=== PATIENT | female | born 1935 | race Caucasian/White ===

== ENCOUNTER 2024-09-14 12:15 | Emergency (ER) | payer OTHER, SELFPAY ==
[2024-09-14 12:22] VITALS: BP 144/96
[2024-09-14 12:45] LABS: % Basophils 0.7 % (0-2); % Eosinophils 3.1 % (0-6); % Immature Granulocytes 0.3 % (0-0.5); % Lymphocytes 20.6 % (20.5-51.1); % Monocytes 7.8 % (1.7-9.3); % Neutrophils 67.5 % (42.2-75.2); Absolute Basophils 0.1 10^3/uL (0-0.2); Absolute Eosinophils 0.2 10^3/uL (0-0.7); Absolute Lymphocytes 1.5 10^3/uL (1.2-3.4); Absolute Monocytes 0.6 10^3/uL (0.1-0.6); Absolute Neutrophils 4.8 10^3/uL (1.4-6.5); Hematocrit 38.8 % (37.0-47.0); Hemoglobin 12.8 g/dL (12.0-16.0); Mean Corpuscular Volume 90.9 fL (81.0-99.0); Mean Platelet Volume 8.9 fL (7.4-10.4); Nucleated Red Blood Cells % 0 %; Platelet Count 228 10^3/uL (130-400); Red Blood Cell Count 4.27 10^6/uL (4.20-5.40); Red Cell Dist. Width 14.8 % (11.5-14.5); White Blood Cell Count 7.1 10^3/uL (4.8-10.8)
[2024-09-14 12:59] LABS: ALT (SGPT) 16 U/L (0-35); AST (SGOT) 19 U/L (14-36); Albumin 4.2 g/dl (3.5-5.0); Alkaline Phosphatase 72 U/L (38-126); Blood Urea Nitrogen 16 mg/dl (7-17); Calcium 9.4 mg/dl (8.4-10.2); Carbon Dioxide 27 mmol/L (22-30); Chloride 103 mmol/L (98-107); Glucose 95 mg/dl (70-99); Potassium 4.5 mmol/L (3.5-5.1); Sodium 138 mmol/L (135-145); Total Protein 6.8 g/dl (6.3-8.2); eGFR > 60.00
--- NOTE | 2024-09-14 14:53 | ED.GENMED ---
History of Present Illness
<Liya Dent PA-C - Last Filed: 09/14/24 21:34>
General
Chief Complaint: Skin Problem
Source: patient
Exam Limitations: none
Time Seen by Provider: 09/14/24 14:09
Nursing documentation reviewed up to this point in time: agreed with
History of Present Illness
History of Present Illness:
89-year-old female with a past medical history of lipidemia presents emergency department today with concerns of a potential right foot infection. Patient states that she is first started noticing redness in her foot a few days ago. Patient
reports that with the wintertime season, she has had dry skin and has been itching her foot nonstop. Patient reports that she started to notice increasing itchiness and started develop redness. Patient denies any exposure to any allergens.
Patient states that it does not hurt. Patient denies any loss of sensation or paresthesias. Patient does note a blister to one of the toes. She denies any injury to the foot, she denies any falls. She has any fevers or chills, nausea or
vomiting. Patient saw her primary care provider this morning who saw her foot and said 'you have to go to the emergency department because your toes may fall off'.
Review of Systems
<Liya Dent PA-C - Last Filed: 09/14/24 21:34>
Review of Systems
All Other Systems: ROS reviewed and negative except as documented in HPI and ROS
Phy Exam
<Liya Dent PA-C - Last Filed: 09/14/24 21:34>
Physical Exam
Physical Exam:
General: Patient is well appearing and in no acute distress; non-toxic
Skin: Warm and dry, erythema noted to the top of the right foot with one blister noted
Head: Normocephalic, atraumatic
Eyes: Sclera non-icteric. EOMs intact.
Cardiac: Regular rate and rhythm, no murmurs
Peripheral Vascular: 2+ dorsalis pedis pulses bilaterally
Pulm: Normal respiratory effort
Musculoskeletal: Tenderness palpation of the right foot, full ROM of bilateral lower extremeties
Neuro: CN II-XII intact, no focal neurologic deficits.
Psychiatric: Appropriate mood and affect.
Course
<Liya Dent PA-C - Last Filed: 09/14/24 21:34>
Orders/Labs/Results
Orders:
Orders
09/14/24 12:29
Complete Blood Count/With Diff Urgent
Comprehensive Metabolic Panel Urgent
Abnormal Lab Results
09/14/24
12:29
RDW 14.8 H %
(11.5-14.5)
09/14/24 12:29
09/14/24 12:29
Vital Signs
Initial and Last Documented VS:
Initial Vital Signs
Temp Pulse Resp BP Pulse Ox
98.1 F 60 20 144/96 98
09/14/24 12:22 09/14/24 12:22 09/14/24 12:22 09/14/24 12:22 09/14/24 12:22
Last Documented Vital Signs
Temp Pulse Resp BP Pulse Ox
98.1 F 60 18 145/90 99
09/14/24 12:22 09/14/24 15:13 09/14/24 15:13 09/14/24 15:13 09/14/24 15:13
<Venkatesh Archer DO - Last Filed: 09/14/24 15:04>
Orders/Labs/Results
Orders:
Orders
09/14/24 12:29
Complete Blood Count/With Diff Urgent
Comprehensive Metabolic Panel Urgent
Abnormal Lab Results
09/14/24
12:29
RDW 14.8 H %
(11.5-14.5)
09/14/24 12:29
09/14/24 12:29
Vital Signs
Initial and Last Documented VS:
Initial Vital Signs
Temp Pulse Resp BP Pulse Ox
98.1 F 60 20 144/96 98
09/14/24 12:22 09/14/24 12:22 09/14/24 12:22 09/14/24 12:22 09/14/24 12:22
Last Documented Vital Signs
Temp Pulse Resp BP Pulse Ox
98.1 F 60 18 145/90 99
09/14/24 12:22 09/14/24 15:13 09/14/24 15:13 09/14/24 15:13 09/14/24 15:13
<Liya Dent PA-C - Last Filed: 09/14/24 21:34>
MDM/Problems Addressed
Differential Diagnosis Includes:
See below
MDM/Problems Addressed:
NUMBER AND COMPLEXITY OF PROBLEMS ADDRESSED AT THE ENCOUNTER
� Chronic conditions affecting care: Hyperlipidemia, hypertension
� Acute Exacerbation and/or Progression of Chronic Illness:
� Differential Diagnosis includes: Differentials include cellulitis, contact dermatitis, abrasion, dependent edema, vascular disease
AMOUNT AND/OR COMPLEXITY OF DATA TO BE REVIEWED AND ANALYZED
� I performed an independent evaluation of and my interpretation is:
X-rays: no indication for x-ray at this time
Other:
� Review of other/old records: Reviewed discharge summary from 11/09/2021, patient seen in rehab after CVA
� Clinical information was obtained by an independent historian: present who provided history
� Prescriptions/Medications Considered but not given: none
� Further testing considered but not performed: none
RISK OF COMPLICATIONS AND/OR MORBIDITY OR MORTALITY OF PATIENT MANAGEMENT
� Social determinants of health affecting care:
� Discussion with other providers: ER attending
� Escalation of care including admission/observation vs risk of discharge considered:
89-year-old female with a past medical history of hypertension, hyperlipidemia, stroke presents emergency department today with concerns of right foot redness. Patient saw her primary care provider and was told to report to emergency department of
concern for potentially losing her toes. On my physical exam, she has good strong distal pulses and I am no concern for acute arterial insufficiency. Physical and history most consistent with cellulitis. Will start on antibiotics, recommend
follow-up with primary care fighter. Patient stable for
<Liya Dent PA-C - Last Filed: 09/14/24 21:34>
*Critical Care Note
Total Time (30-74mins, 75-104mins- exclusive of procedures): Not Applicable
ED Attending Note
<Liya Dent PA-C - Last Filed: 09/14/24 21:34>
-
Portions of this chart may have been created with voice recognition software.� Occasional wrong word or��sound alike� substitutions may have occurred due to the inherent limitations of voice recognition software.
<Venkatesh Archer DO - Last Filed: 09/14/24 15:04>
ED Attending Note
Patient seen and examined by attending physician: Yes
I performed the substantive portion of visit, reviewed & personally made and approve the management plan that is documented in note by myself or FRANKIE.: Yes
ED Attending Note:
I evaluated the patient at bedside. The patient has a strong DP pulse on the right foot. Normal perfusion. Blister noted but is not bothering her. Onychomycosis is also noted. Cellulitis noted.
Discharge Plan
Departure
Patient Disposition: Home (Routine Discharge)
Date of Disposition: 09/14/24
Time of Disposition: 15:08
Patient with high blood pressure during this ER visit?: Yes
Condition: Good
Discharge Problem:
Cellulitis of left foot
Instructions: Cellulitis (Skin Infection), Adult (DC), BLOOD PRESSURE
Prescriptions:
New
cephalexin 500 mg capsule
500 mg PO QID 5 Days Qty: 20 0RF
No Action
atorvastatin 40 MG tablet
40 mg PO QPM Qty: 90 0RF
levothyroxine 175 MCG tablet
175 mcg PO DAILY@0700 Qty: 30 0RF
sennosides [senna] 1 TABLET tablet
2 tab PO NOON PRN (Reason: constipation) Qty: 30 0RF
cyanocobalamin (vitamin B-12) 1,000 MCG tablet
1,000 mcg PO DAILY Qty: 90 0RF
clopidogrel 75 MG tablet
75 mg PO DAILY Qty: 70 0RF
aspirin 81 MG tablet,delayed release (DR/EC)
81 mg PO DAILY Qty: 90 0RF
acetaminophen [Tylenol Extra Strength] 500 MG tablet
1,000 mg PO Q6HPRN PRN (Reason: MILD PAIN) Qty: 90 0RF
docusate sodium 100 MG capsule
100 mg PO BID Qty: 60 0RF
alendronate 70 MG tablet
70 mg PO WEEKLY Qty: 4 0RF
fesoterodine [Toviaz] 8 MG tablet extended release 24 hr
8 mg PO DAILY Qty: 30 0RF
Referrals:
UNKNOWN - PT DOES,NOT KNOW [Family Provider] -
Activity Restrictions/Additional Instructions:
Please schedule a follow up appointment with your primary care provider in one week for reassessment.
Keflex has been sent to your pharmacy. Please take one tablet 4 times daily for 5 days.
PLEASE RETURN TO THE EMERGENCY DEPARTMENT SHOULD YOU EXPERIENCE LOSS OF SENSATION IN YOUR FOOT, INCREASING PAIN, TROUBLE BEARING WEIGHT ON THAT FOOT, FEVERS OR CHILLS, NAUSEA OR VOMITING, CHEST PAIN, SHORTNESS OF BREATH, OR ANY OTHER SIGNS OR
SYMPTOMS WORRISOME TO YOU.
Interventions
Interventions:
*Risk Screen - Suicide Last Done: 09/14/24 12:22
*General Assessment Last Done: 09/14/24 12:22
*Neglect/Abuse Screening Last Done: 09/14/24 12:22
ED- Fall Risk Assessment Last Done: 09/14/24 14:08
*ED COVID-19 Vaccine History Last Done: 09/14/24 14:05
*Nursing Disposition Last Done: 09/14/24 15:14
ED-Skin Assessment Last Done: 09/14/24 14:05
Discharge Date and Time
Discharge Date/Time: 09/14/24 15:14
Print Language: ALGERIAN
[2024-09-14 15:13] VITALS: BP 145/90
== END 2024-09-14 15:14 | disposition home or self-care (01) ==
LOC: EMR 12:15
PROVIDERS: Emergency Medicine; EMERGENCY PHYSICIAN Emergency Medicine
DX: L03.116 Cellulitis of left lower limb (principal); S90.821A Blister (nonthermal), right foot, initial encounter; X58.XXXA Exposure to other specified factors, initial encounter; B35.1 Tinea unguium; E78.5 Hyperlipidemia, unspecified; I10 Essential (primary) hypertension; Z86.73 Personal history of transient ischemic attack (TIA), and cerebral infarction without residual deficits; Z79.82 Long term (current) use of aspirin
CPT/HCPCS: 99283; 80053; 85025